=== PATIENT | male | born 1995 | race Caucasian/White ===

== ENCOUNTER 2017-12-20 14:15 | Emergency (ER) | payer OTHER ==
[2017-12-20 14:19] VITALS: BP 121/56; PULSE 55; TEMP 98.2; BMI 29.9
--- NOTE | 2017-12-20 15:21 | PDOC ---
History of Present Illness - General Chief Complaint: Injury Stated Complaint: ARM PAIN Time Seen by Provider: 12/20/17 14:43 Past History - Past Medical History Allergies/Adverse Reactions: Allergies Allergy/AdvReac Type Severity Reaction Status Date / Time No Known Allergies Allergy Verified 12/20/17 14:16 Home Medications: Ambulatory Orders Ibuprofen 800 mg PO TID #30 tablet 12/20/17 Asthma: Yes COPD: No - Suicide/Smoking/Psychosocial Hx Smoking Status: No Smoking History: Never smoked Have you smoked in the past 12 months: No Number of Cigarettes Smoked Daily: 0 Information on smoking cessation initiated: No Hx Alcohol Use: No Drug/Substance Use Hx: No Substance Use Type: None *Physical Exam - Vital Signs Last Vital Signs Temp Pulse Resp BP Pulse Ox 98.2 F 55 L 18 121/56 100 12/20/17 14:17 12/20/17 14:17 12/20/17 14:17 12/20/17 14:17 12/20/17 14:17 *DC/Admit/Observation/Transfer Diagnosis at time of Disposition: Shoulder pain, left Qualifiers: Chronicity: acute Qualified Code(s): M25.512 - Pain in left shoulder - Discharge Dispostion Disposition: HOME Condition at time of disposition: Stable Admit: No - Referrals Referrals: Prudencio Rosa MD [Primary Care Provider] - - Patient Instructions Printed Discharge Instructions: DI for Shoulder Pain Additional Instructions: You fell yesterday. Your shoulder x-ray was negative for fractures. You most likely strained the muscles in your shoulder. Please take Motrin 800 mg every 8 hours for one week. Please do gentle range of motion exercises instructions the shoulder. Please follow-up with orthopedics in 3-5 days if her symptoms do not improve. Return to the emergency department if you have worsening pain, numbness and tingling in the extremities, or have any changes in your symptoms. - Post Discharge Activity Forms/Work/School Notes: Back to School
[2017-12-20] MEDS ORDERED: IBUPROFEN 400 MG TABLET (FP) PO ONE ×2 (16:10→16:12)
== END 2017-12-20 16:16 | disposition home or self-care (01) ==
LOC: JERFT 14:15
DX: M25.512 Pain in left shoulder (principal); J45.909 Unspecified asthma, uncomplicated
CPT/HCPCS: 73030-TC-LT-FY; 99281-25